=== PATIENT | female | born 1955 | race African-American/Black ===

== ENCOUNTER 2019-06-24 14:53 | Emergency (ER) | payer OTHER ==
[~2019-06-24] VITALS: Ht 165.1 cm; Wt 84.1 kg
[~2019-06-24 14:53] MED LIST: ALBU8.5H8 IH; ASPI-556 PO; CALC-719 PO; DIAZ10 PO; DIPH25 PO; HYDR1LIQ5 PO; LACT300R PO; METO50 PO; MULT-1259 PO; NITR0.4T52 SL; SERT100T12 PO; VIT1TABL69 PO
[2019-06-24 17:25] VITALS: BP 136/78
== END 2019-06-24 18:14 | disposition left against medical advice (07) ==
LOC: EMS 14:54
DX: S09.93XA Unspecified injury of face, initial encounter (principal); F10.129 Alcohol abuse with intoxication, unspecified; E11.9 Type 2 diabetes mellitus without complications; I10 Essential (primary) hypertension; I25.2 Old myocardial infarction; Z87.891 Personal history of nicotine dependence; Z79.82 Long term (current) use of aspirin; Z91.040 Latex allergy status; X58.XXXA Exposure to other specified factors, initial encounter; Y93.89 Activity, other specified; Y92.89 Other specified places as the place of occurrence of the external cause; Y99.8 Other external cause status; Y90.7 Blood alcohol level of 200-239 mg/100 ml
CPT/HCPCS: 36415; 82948; 82962; 99283; G0480